=== PATIENT | male | born 1970 | race Caucasian/White ===

== ENCOUNTER 2023-07-19 04:23 | Emergency (ER) | payer BC ==
[2023-07-19] MEDS ORDERED: CEFTRIAXONE 1000 MG/VIAL ONE (05:32)
[2023-07-19] MEDS ORDERED: AZITHROMYCIN 250 MG TAB ONE (05:32)
[2023-07-19] MEDS ORDERED: NA CHLORIDE 0.9% 1,000 ML ONE (05:32)
[2023-07-19 05:33] LABS: SARS-CoV-2 Antigen Rapid Res Negative (Negative)
[2023-07-19 05:43] LABS: Absolute Lymphocytes (CBC) 0.9 K/uL (0.7-4.9); Hematocrit 40.6 % (39.6-49.0); Lymphocytes % 14.4 % (15.3-44.8); MCV 94.8 fL (80-100); Platelets 141 thou/uL (152-406); RBC Red Blood Cell Count 4.28 M/uL (4.33-5.43)
[2023-07-19 05:49] LABS: Albumin 3.6 g/dL (3.4-5.0); Bilirubin Total 0.5 mg/dL (0.2-1.0); Potassium 3.5 mEq/L (3.5-5.1); Protein, Total 6.8 g/dL (6.4-8.2); Troponin High Sensitivity 6.6 pg/mL (<58.9)
[2023-07-19] MEDS ORDERED: METHYLPREDNISOLONE 125 MG INJ ONE (06:07)
[2023-07-19] MEDS ORDERED: OSELTAMIVIR 75 MG CAP PO ONE (06:07)
--- NOTE | 2023-07-19 06:09 | ER ---
Nurse's Notes [facility] Name: Edward Valencia Age: 52 yrs Sex: Male : 1970 Arrival Date: 07/19/2023 Time: 04:23 Bed 3 Private MD: Diagnosis: Acute upper respiratory infection, unspecified;Fever, unspecified;Cough;Influenza due to identified novel influenza A virus;Influenza due to identified novel influenza A virus with other respiratory manifestations Presentation: 07/19 04:42 Chief complaint: Patient states: pt reports cough, congestion, body aches, and fever km8 for 2 days. Coronavirus screen: Client denies travel out of the [place] in the last 14 days. Ebola Screen: No symptoms or risks identified at this time. Initial Sepsis Screen: Does the patient meet any 2 criteria? HR > 90 bpm. No. Patient's initial sepsis screen is negative. Does the patient have a suspected source of infection? No. Patient's initial sepsis screen is negative. Risk Assessment: Do you want to hurt yourself or someone else? Patient reports no desire to harm self or others. Onset of symptoms was July 16, 2023. 04:42 Method Of Arrival: Ambulatory km8 04:42 Acuity: DOROTHEA 3 km8 Triage Assessment: 04:45 General: Appears in no apparent distress. uncomfortable, Behavior is calm, cooperative, km8 appropriate for age. Pain: Complains of pain in generalized body aches Pain currently is 7 out of 10 on a pain scale. EENT: Reports nasal congestion. Neuro: Tobin Agitation-Sedation Scale (RASS): 0 - Alert and Calm Level of Consciousness is awake, alert, obeys commands, Oriented to person, place, time, situation. Cardiovascular: Denies chest pain, shortness of breath, Capillary refill < 3 seconds Patient's skin is warm and dry. Respiratory: Reports cough that is productive, Airway is patent Respiratory effort is even, unlabored, Respiratory pattern is regular, symmetrical, Breath sounds are clear bilaterally. GI: No signs and/or symptoms were reported involving the gastrointestinal system. : No signs and/or symptoms were reported regarding the genitourinary system. Derm: No signs and/or symptoms reported regarding the dermatologic system. Skin is intact, is healthy with good turgor, Skin is dry, Skin is pink, warm \T\ dry. normal, Skin temperature is warm. Musculoskeletal: No signs and/or symptoms reported regarding the musculoskeletal system. Range of motion: intact in all extremities. Historical: - Allergies: 04:45 Codeine; km8 - PMHx: 04:45 Myocardial infarction; km8 - PSHx: 04:45 Stented artery; Cholecystectomy; back; km8 - Immunization history:: Adult Immunizations up to date, Client reports having NOT received the Covid vaccine. Flu vaccine is not up to date. - Social history:: Smoking status: Patient denies any tobacco usage or history of. Patient uses alcohol, occasionally. Patient/guardian denies using street drugs. - Family history:: not pertinent. Screenin:48 [facility] ED Fall Risk Assessment (Adult) History of falling in the last 3 months, km8 including since admission No falls in past 3 months (0 pts) Confusion or Disorientation No (0 pts) Intoxicated or Sedated No (0 pts) Impaired Gait No (0 pts) Mobility Assist Device Used No (0 pt) Altered Elimination No (0 pt) Score/Fall Risk Level 0 - 2 = Low Risk Oriented to surroundings, Maintained a safe environment, Educated pt \T\ family on fall prevention, incl call for assistance when getting out of bed, Assessed \T\ reinforced patient's understanding of fall precautions. Abuse screen: Denies threats or abuse. Denies injuries from another. Nutritional screening: No deficits noted. Tuberculosis screening: No symptoms or risk factors identified. Assessment: 04:48 General: see triage assessment/notes. Pain: Complains of pain in generalized body aches km8 Pain currently is 7 out of 10 on a pain scale. Cardiovascular: Capillary refill < 3 seconds Patient's skin is warm and dry. Respiratory: Reports cough that is productive, Airway is patent Respiratory effort is even, unlabored, Respiratory pattern is regular, symmetrical, Breath sounds are clear bilaterally. 06:02 Reassessment: Patient appears in no apparent distress at this time. No changes from km8 previously documented assessment. Patient and/or family updated on plan of care and expected duration. Pain level reassessed. Patient is alert, oriented x 3, equal unlabored respirations, skin warm/dry/pink. Vital Signs: 04:42 BP 98 / 79; Pulse 103; Resp 16; Temp 99.2(O); Pulse Ox 97% on R/A; Weight 83.91 kg (R); km8 Height 5 ft. 11 in. ; Pain 7/10; 05:00 BP 143 / 67; Pulse 99; Pulse Ox 97% on R/A; km8 05:30 BP 107 / 72; Pulse 89; Pulse Ox 98% on R/A; km8 06:00 BP 113 / 72; Pulse 87; Resp 16; Pulse Ox 95% on R/A; km8 04:42 Body Mass Index 25.80 (83.91 kg, 180.34 cm) km8 04:42 Pain Scale: Adult km8 Lina Coma Score: 04:48 Eye Response: spontaneous(4). Motor Response: obeys commands(6). Verbal Response: km8 oriented(5). Total: 15. ED Course: 04:27 Patient arrived in ED. [email or web address] 04:34 Jovany Potter MD is Attending Physician. susan 04:41 Gretta Restrepo, CRESENCIO is Primary Nurse. km8 04:45 Triage completed. km8 04:45 Arm band placed on right wrist. km8 04:48 Patient has correct armband on for positive identification. Placed in gown. Bed in low km8 position. Call light in reach. Side rails up X 1. car icer on. Pulse ox on. NIBP on. 04:48 No provider procedures requiring assistance completed. Patient maintains SpO2 km8 saturation greater than 95% on room air. 05:05 Chest Pa And Lat (2 Views) XRAY In Process Unspecified. EDMS 05:06 Flu Sent. wm 05:06 SARS RAPID Sent. 05:14 Inserted saline lock: 20 gauge in left antecubital area, using aseptic technique. Blood km8 collected. 06:14 Provided Education on: d/c teaching. km8 06:23 IV discontinued, intact, bleeding controlled, No redness/swelling at site. Pressure km8 dressing applied. Administered Medications: 05:22 Drug: NS 0.9% IV 1000 ml IV at 1 bolus Per protocol; 1000 mL bolus Route: IV; Rate: 1 km8 bolus; Site: left antecubital; 06:15 Follow up: IV Status: Completed infusion; IV Intake: 1000ml km8 05:30 Drug: Rocephin IV 1 grams IV at per protocol once; Given slow IV push per pharmacy km8 instructions Route: IV; Rate: per protocol; Site: left antecubital; 05:48 Follow up: IV Status: Completed infusion; IV Intake: 10ml km8 05:48 Follow up: Response: No adverse reaction km8 05:30 Drug: AZITHromycin PO 500 mg PO once Route: PO; km8 06:00 Follow up: Response: No adverse reaction km8 06:00 Drug: MethylPrednisoLONE IVP 125 mg IVP once Route: IVP; Site: left antecubital; km8 06:15 Follow up: Response: No adverse reaction km8 06:00 Drug: Oseltamivir PO 75 mg PO once Route: PO; km8 06:15 Follow up: Response: No adverse reaction km8 Medication: 04:48 VIS not applicable for this client. km8 Intake: 05:48 IV: 10ml; Total: 10ml. km8 06:15 IV: 1000ml; Total: 1010ml. km8 Outcome: 06:09 Discharge ordered by MD. davis 06:23 Discharged to home ambulatory, with significant other, km8 06:23 Condition: good 06:23 Discharge instructions given to patient, significant other, Instructed on discharge instructions, follow up and referral plans. medication usage, Demonstrated understanding of instructions, follow-up care, medications, Prescriptions given X 5 06:24 Patient left the ED. km8 Signatures: Dispatcher [employer] EDMS Jovany Potter MD MD cha Marsh, Wendy wm Jeffries, Jennifer [email or web address] Gretta Restrepo RN RN km8 Corrections: (The following items were deleted from the chart) 04:49 04:45 Respiratory: Airway is patent Respiratory effort is even, unlabored, Respiratory km8 pattern is regular, symmetrical, Breath sounds are clear bilaterally. km8
--- NOTE | 2023-07-19 06:09 | EDPHYS ---
Physician Documentation [facility] Name: Edward Valencia Age: 52 yrs Sex: Male : 1970 Arrival Date: 07/19/2023 Time: 04:23 Bed 3 Private MD: ED Physician Jovany Potter HPI: 07/19 04:39 This 52 yrs old Male presents to ER via Unassigned with complaints of Cough, susan Congestion, General Weakness, MUSCLE ACHES. 04:39 The patient or guardian reports airway noise, cough, difficulty breathing, flu susan symptoms, arthralgias, low-grade fever, myalgias, no appetite. Onset: The symptoms/episode began/occurred 2 day(s) ago. Severity of symptoms: At their worst the symptoms were mild, moderate, in the emergency department the symptoms are unchanged. Modifying factors: The symptoms are alleviated by nothing. Associated signs and symptoms: The patient has no apparent associated signs or symptoms. The patient has experienced similar episodes in the past, a few times. Historical: - Allergies: 04:45 Codeine; km8 - PMHx: 04:45 Myocardial infarction; km8 - PSHx: 04:45 Stented artery; Cholecystectomy; back; km8 - Immunization history:: Adult Immunizations up to date, Client reports having NOT received the Covid vaccine. Flu vaccine is not up to date. - Social history:: Smoking status: Patient denies any tobacco usage or history of. Patient uses alcohol, occasionally. Patient/guardian denies using street drugs. - Family history:: not pertinent. ROS: 04:40 Eyes: Negative for injury, pain, redness, and discharge, ENT: Negative for injury, susan pain, and discharge, Neck: Negative for injury, pain, and swelling, Cardiovascular: Negative for chest pain, palpitations, and edema, Abdomen/GI: Negative for abdominal pain, nausea, vomiting, diarrhea, and constipation, Back: Negative for injury and pain, : Negative for injury, bleeding, discharge, and swelling, MS/Extremity: Negative for injury and deformity, Skin: Negative for injury, rash, and discoloration, Neuro: Negative for headache, weakness, numbness, tingling, and seizure, Psych: Negative for depression, anxiety, suicide ideation, homicidal ideation, and hallucinations, Allergy/Immunology: Negative for hives, rash, and allergies, Endocrine: Negative for neck swelling, polydipsia, polyuria, polyphagia, and marked weight changes, Hematologic/Lymphatic: Negative for swollen nodes, abnormal bleeding, and unusual bruising, 04:40 Cardiovascular: Positive for palpitations, 04:40 Respiratory: Positive for cough, shortness of breath, wheezing, expiratory, Exam: 04:40 Constitutional: This is a well developed, well nourished patient who is awake, alert, susan and in no acute distress. Head/Face: Normocephalic, atraumatic. Eyes: Pupils equal round and reactive to light, extra-ocular motions intact. Lids and lashes normal. Conjunctiva and sclera are non-icteric and not injected. Cornea within normal limits. Periorbital areas with no swelling, redness, or edema. ENT: Nares patent. No nasal discharge, no septal abnormalities noted. Tympanic membranes are normal and external auditory canals are clear. Oropharynx with no redness, swelling, or masses, exudates, or evidence of obstruction, uvula midline. Mucous membranes moist. Neck: Trachea midline, no thyromegaly or masses palpated, and no cervical lymphadenopathy. Supple, full range of motion without nuchal rigidity, or vertebral point tenderness. No Meningismus. Chest/axilla: Normal chest wall appearance and motion. Nontender with no deformity. No lesions are appreciated. Abdomen/GI: Soft, non-tender, with normal bowel sounds. No distension or tympany. No guarding or rebound. No evidence of tenderness throughout. Back: No spinal tenderness. No costovertebral tenderness. Full range of motion. Male : Normal genitalia with no discharge or lesions. Skin: Warm, dry with normal turgor. Normal color with no rashes, no lesions, and no evidence of cellulitis. MS/ Extremity: Pulses equal, no cyanosis. Neurovascular intact. Full, normal range of motion. Neuro: Awake and alert, GCS 15, oriented to person, place, time, and situation. Cranial nerves II-XII grossly intact. Motor strength 5/5 in all extremities. Sensory grossly intact. Cerebellar exam normal. Normal gait. Psych: Awake, alert, with orientation to person, place and time. Behavior, mood, and affect are within normal limits. 04:40 Cardiovascular: Rate: tachycardic, actual rate is 106 bpm, Rhythm: regular, Pulses: Pulses are 4+ in bilateral radial, brachial, femoral, popliteal, posterior tibial and and dorsalis pedis arteries.. Heart sounds: normal, Edema: is not appreciated, JVD: is not appreciated, 05:26 ECG was reviewed by the Attending Physician. [facility] Vital Signs: 04:42 BP 98 / 79; Pulse 103; Resp 16; Temp 99.2(O); Pulse Ox 97% on R/A; Weight 83.91 kg (R); km8 Height 5 ft. 11 in. ; Pain 7/10; 05:00 BP 143 / 67; Pulse 99; Pulse Ox 97% on R/A; km8 05:30 BP 107 / 72; Pulse 89; Pulse Ox 98% on R/A; km8 06:00 BP 113 / 72; Pulse 87; Resp 16; Pulse Ox 95% on R/A; 8 04:42 Body Mass Index 25.80 (83.91 kg, 180.34 cm) [facility] 04:42 Pain Scale: Adult km8 Lina Coma Score: 04:48 Eye Response: spontaneous(4). Motor Response: obeys commands(6). Verbal Response: km8 oriented(5). Total: 15. MDM: 04:34 Patient medically screened. [facility] 04:42 Differential diagnosis: viral Infection, bacterial infection, URI, bronchitis, susan pneumonia UTI. Differential Diagnosis: Obstructed Airway Bronchitis Influenza Upper Respiratory Infection Sinusitis Pharyngitis Asthma Exacerbation Viral Syndrome Pneumonia. Data reviewed: vital signs, nurses notes, lab test result(s), EKG, radiologic studies, plain films. Consideration of Admission/Observation Patient was admitted/placed on observation. Escalation of care including admission/observation considered. I considered the following discharge prescriptions or medication management in the emergency department Medications were administered in the Emergency Department. See MAR. Independent interpretation of the following test(s) in the Emergency Department EKG: See my EKG interpretation above. Test considered but Not performed: CT: CT CHEST. Care significantly affected by the following chronic conditions:. 07/19 04:31 Order name: CBC with Diff; Complete Time: 06:06 [facility] 07/19 04:31 Order name: Comprehensive Metabolic Panel; Complete Time: 06:06 [facility] 07/19 04:31 Order name: Blood Culture Adult (2) [facility] 07/19 04:31 Order name: Lactate w/ 2H reflex if indic.; Complete Time: 06:06 [facility] 07/19 04:31 Order name: Troponin HS; Complete Time: 06:06 [facility] 07/19 04:31 Order name: SARS RAPID; Complete Time: 05:40 [facility] 07/19 04:31 Order name: Flu; Complete Time: 05:40 [facility] 07/19 04:31 Order name: Chest Pa And Lat (2 Views) XRAY [facility] 07/19 04:31 Order name: EKG; Complete Time: 04:31 [facility] 07/19 04:31 Order name: EKG - Nurse/Tech; Complete Time: 05:14 [facility] EC:26 Rate is 90 beats/min. Rhythm is regular. QRS [place] is Normal. MA interval is normal. QRS susan interval is normal. QT interval is normal. No Q waves. T waves are Normal. No ST changes noted. Clinical impression: NSR w/ Non-specific ST/T Changes and No evidence of ischemia. Interpreted by me. Reviewed by me. Administered Medications: 05:22 Drug: NS 0.9% IV 1000 ml IV at 1 bolus Per protocol; 1000 mL bolus Route: IV; Rate: 1 km8 bolus; Site: left antecubital; 06:15 Follow up: IV Status: Completed infusion; IV Intake: 1000ml km8 05:30 Drug: Rocephin IV 1 grams IV at per protocol once; Given slow IV push per pharmacy km8 instructions Route: IV; Rate: per protocol; Site: left antecubital; 05:48 Follow up: IV Status: Completed infusion; IV Intake: 10ml km8 05:48 Follow up: Response: No adverse reaction km8 05:30 Drug: AZITHromycin PO 500 mg PO once Route: PO; km8 06:00 Follow up: Response: No adverse reaction 8 06:00 Drug: MethylPrednisoLONE IVP 125 mg IVP once Route: IVP; Site: left antecubital; km8 06:15 Follow up: Response: No adverse reaction 8 06:00 Drug: Oseltamivir PO 75 mg PO once Route: PO; km8 06:15 Follow up: Response: No adverse reaction km8 Disposition Summary: 07/19/23 06:09 Discharge Ordered Notes: Location: Home susan Problem: new susan Symptoms: have improved susan Condition: Stable susan Diagnosis - Acute upper respiratory infection, unspecified susan - Fever, unspecified susan - Cough susan - Influenza due to identified novel influenza A virus [facility] - Influenza due to identified novel influenza A virus with other respiratory [facility] manifestations Followup: [facility] - With: Private Physician - When: 2 - 3 days - Reason: Recheck today's complaints, Continuance of care, Re-evaluation by your physician Discharge Instructions: - Discharge Summary Sheet [facility] - Fever, Adult susan - Influenza, Adult susan - Upper Respiratory Infection, Adult [facility] - Cool Mist Vaporizer [facility] - Upper Respiratory Infection, Adult, [id number] susan - Influenza, Adult, [id number] [facility] - Cough, Adult [facility] Forms: - Medication Reconciliation Form [facility] - Thank You Letter [facility] - Antibiotic Education [facility] - Prescription Opioid Use [facility] - Patient Portal Instructions [facility] - Leadership Thank You Letter [facility] Prescriptions: - Vanesa-D 12 Hour 60-120 mg Oral Tablet Sustained Release 12 hr - take 1 tablet ORAL route every 12 hours As needed; 20 tablet; Refills: 0, [facility] Product Selection Permitted - Tessalon Perles 100 mg Oral capsule - take 2 capsule ORAL route every 8 hours As needed; 30 capsule; Refills: 0, [facility] Product Selection Permitted - Medrol (Poli) 4 mg Oral Tablets, Dose Pack - take 1 tablet ORAL route as directed - follow package instructions; 1 packet; [facility] Refills: 0, Product Selection Permitted - Tamiflu 75 mg Oral capsule - take 1 tablet ORAL route every 12 hours for 5 days; 10 tablet; Refills: 0, [facility] Product Selection Permitted - Zithromax 500 mg Oral Tablet - take 1 tablet ORAL route once daily for 5 days; 5 tablet; Refills: 0, Product [facility] Selection Permitted Signatures: Dispatcher [employer] Jovany Lawrence MD MD cha Marx, Katie, RN RN km8
[2023-07-19 06:34] VITALS: TEMP 99.2
[2023-07-19 06:50] VITALS: BP 113/72; O2SAT 95
--- NOTE | 2023-07-19 22:09 | RAD REPORT ---
EXAM DESCRIPTION: RAD - Chest Pa And Lat (2 Views) - 07/19/2023 5:04 am CLINICAL HISTORY: COUGH COMPARISON: None TECHNIQUE: PA and lateral views of the chest. FINDINGS: Lung volumes adequate. Cardiac silhouette is normal in size. No pneumothorax. No large pleural effusion. No focal consolidation. No acute bony finding. IMPRESSION: No evidence of acute cardiopulmonary disease. Electronically signed by: Susan Rg MD 07/19/2023 05:15 AM SENIOR LOGISTICS MANAGER Due to temporary technical issues with the PACS/Fluency reporting system, reports are being signed by the in house radiologists without review as a courtesy to insure prompt reporting. The interpreting radiologist is fully responsible for the content of the report.
--- NOTE | 2023-07-23 14:00 | EKG ---
Test Date: 2023-07-19 Test Time: 05:02:21 Dictaphone Operator: JUSTEN MEASUREMENT RESULTS: Intervals: Rate: 90 MO: 154 QRSD: 94 QT: 330 QTc: 403 [place]: P: 77 MO: 154 QRS: 85 T: 42 INTERPRETIVE STATEMENTS: Normal sinus rhythm Normal ECG No previous ECG available for comparison Electronically Signed On 07-23-23 13:44:25 DATA KEYER by Srikanth Wei
== END 2023-07-19 06:24 | disposition home or self-care (01) ==
LOC: ER 04:23
DX: J10.1 Influenza due to other identified influenza virus with other respiratory manifestations (principal); R50.9 Fever, unspecified; Z11.52 Encounter for screening for COVID-19; Z88.5 Allergy status to narcotic agent; Z28.310 Unvaccinated for COVID-19
CPT/HCPCS: 96365; 96361; 93005; 87040 ×2; 85025; 36415; 83605; 84484; 80053; 87804 ×2; 71046; 96375; 99285; 87811; J2930; J7030; J0696